=== PATIENT | male | born 1955 | race Caucasian/White ===

== ENCOUNTER 2022-02-27 20:59 | Inpatient (IN) | payer MEDICARE ==
[2022-02-27 21:26] VITALS: BMI 24.3
[2022-02-27] MEDS ORDERED: Ondansetron ODT 4 MG TAB PO PRN (22:11)
[2022-02-27] MEDS ORDERED: Acetaminophen 325 MG TAB PO PRN (22:11)
[2022-02-27] MEDS ORDERED: Ondansetron PF 4 MG/2 ML Vial IVP PRN (22:11)
[2022-02-27] MEDS ORDERED: Acetaminophen 650 MG Suppository PR PRN (22:11)
[2022-02-27] MEDS ORDERED: traZODone HCl 50 MG TAB PO SCH (22:45)
[2022-02-27] MEDS: Sodium Chloride 0.9% 1,000 ML IV SCH (23:08)
[2022-02-28 05:19] LABS: Anion Gap 10 mmol/L (10-20); BUN (Urea Nitrogen) 30 mg/dL (8.4-25.7); Calc. Creatinine Clearance 38 mL/min (70-130); Calcium 9.1 mg/dL (7.8-10.44); Carbon Dioxide 30 mmol/L (23-31); Chloride 100 mmol/L (98-107); Glucose 112 mg/dL (80-115); Potassium 3.6 mmol/L (3.5-5.1); Sodium 136 mmol/L (136-145)
[2022-02-28 05:28] LABS: #Basophils 0.1 thou/uL (0.0-0.2); #Eosinphils 0.4 thou/uL (0.0-0.7); #Lymphocytes 1.6 thou/uL (1.20-3.40); #Monocytes 1.2 thou/uL (0.11-0.59); %Basophils 0.5 % (0.0-1.0); %Lymphocytes 17.5 % (21.0-51.0); %Monocytes 12.6 % (0.0-10.0); %Neutrophils 65.4 % (42.0-75.0); Hemoglobin 12.1 g/dL (14.0-18.0); MDiff Complete? YES; Macrocytosis SLIGHT = 6-15 cells (100X) (0-5/hpf); Mean Corpuscular HGB CONC 33.6 g/dL (32.0-36.0); Mean Corpuscular Hemoglobin 35.4 pg (27.0-31.0); Mean Platelet Volume 7.7 fL (7.4-10.4); Platelet Count 269 thou/uL (130-400); RBC Distribution Width 12.1 % (11.5-14.5); Red Blood Cell (RBC) Count 3.42 mill/uL (4.70-6.10); White Blood Cell (WBC) Count 9.2 thou/uL (4.8-10.8)
[2022-02-28] MEDS: Enoxaparin Sodium 30 MG/0.3 ML SYRINGE SC SCH (08:58)
[2022-02-28] MEDS: Sodium Chloride 0.9% 1,000 ML IV SCH ×2 (09:25→20:34)
[2022-02-28 12:22] LABS: SARS-CoV-2 PCR by NAA Not Detected (NotDetected)
[2022-02-28] MEDS ORDERED: Melatonin 3 MG TAB PO PRN (19:44)
[2022-02-28] MEDS ORDERED: hydrOXYzine 25 MG TAB PO PRN (19:49)
[2022-02-28] MEDS ORDERED: Gabapentin 100 MG CAP PO SCH (21:00)
[2022-03-01 04:41] LABS: Anion Gap 12 mmol/L (10-20); BUN (Urea Nitrogen) 13 mg/dL (8.4-25.7); Calc. Creatinine Clearance 86 mL/min (70-130); Calcium 9.3 mg/dL (7.8-10.44); Carbon Dioxide 26 mmol/L (23-31); Chloride 103 mmol/L (98-107); Glucose 96 mg/dL (80-115); Potassium 3.9 mmol/L (3.5-5.1); Sodium 137 mmol/L (136-145)
[2022-03-01] MEDS: Sodium Chloride 0.9% 1,000 ML IV SCH ×2 (05:26→14:54)
[2022-03-01] MEDS: Enoxaparin Sodium 30 MG/0.3 ML SYRINGE SC SCH (10:52)
[2022-03-01 16:31] VITALS: TEMP 97.3
[2022-03-01 19:28] VITALS: BP 139/78
[2022-03-02] MEDS ORDERED: Enoxaparin Sodium 40 MG/0.4 ML SYRINGE SC SCH (09:00)
== END 2022-03-01 18:55 | disposition home or self-care (01) | DRG 312 ==
LOC: INTOOBSV 20:59 → 2NO 20:59 → OBSVTOIN 02-28 14:09
PROVIDERS: ADMIT Family Medicine; ATTEND Internal Medicine
DX: I95.1 Orthostatic hypotension (principal); N17.9 Acute kidney failure, unspecified; G89.29 Other chronic pain; M54.9 Dorsalgia, unspecified; G62.9 Polyneuropathy, unspecified; I10 Essential (primary) hypertension; E86.0 Dehydration; Z20.822 Contact with and (suspected) exposure to COVID-19; Z87.891 Personal history of nicotine dependence; Z98.890 Other specified postprocedural states
CPT/HCPCS: 36415; 80048; 85025; 93005; 93010; 93306; J1650; J7050; U0003; U0005

== ENCOUNTER 2022-11-20 11:26 | Outpatient (CLI) | payer MEDICARE ==
[2022-11-20 12:16] LABS: #Basophils 0.1 10x3/uL (0.0-0.2); #Eosinphils 0.2 10x3/uL (0.0-0.5); #Monocytes 1.2 10x3/uL (0.0-1.1); #Neutrophils 5.2 10x3/uL (1.5-8.4); %Basophils 0.9 % (0.0-2.0); %Eosinophils 2.7 % (0.0-6.0); %Lymphocytes 21.2 % (18.0-47.0); %Monocytes 13.6 % (0.0-10.0); %Neutrophils 61.4 % (40.0-75.0); Hemoglobin 12.1 g/dL (13.5-17.5); Mean Corpuscular HGB CONC 34.2 g/dL (32.0-36.0); Mean Corpuscular Hemoglobin 36.7 pg (27.0-33.0); Mean Corpuscular Volume 107.3 fl (81.2-95.1); Mean Platelet Volume 9.6 fl (7.4-10.4); Platelet Count 331 10x3/uL (150-450); RBC Distribution Width 13.5 % (11.5-14.5); White Blood Cell (WBC) Count 8.5 10x3/uL (3.5-10.5)
[2022-11-20 12:22] LABS: INR-International Normal Ratio 0.9; Prothrombin Time 10.3 sec (9.5-12.1)
[2022-11-20 12:24] LABS: Anion Gap 16 mmol/L (10-20); BUN (Urea Nitrogen) 14 mg/dL (8.4-25.7); Calc. Creatinine Clearance 0 mL/min (70-130); Calcium 9.8 mg/dL (7.8-10.44); Carbon Dioxide 25 mmol/L (23-31); Chloride 105 mmol/L (98-107); Estimated GFR 96; Glucose 88 mg/dL (80-115); Potassium 4.1 mmol/L (3.5-5.1); Sodium 142 mmol/L (136-145)
== END 2022-11-20 11:27 | disposition home or self-care (01) ==
LOC: LABBT 11:26
PROVIDERS: ATTEND Orthopaedic Surgery
DX: Z01.818 Encounter for other preprocedural examination (principal); T84.011A Broken internal left hip prosthesis, initial encounter
CPT/HCPCS: 80048; 85025; 85610; 87081; 93005; 93010

== ENCOUNTER 2022-11-21 16:04 | Emergency (ER) | payer MEDICARE | END 2022-11-21 17:45 | disposition short-term general hospital (02) | LOC: ERS 16:04 | DX: M25.552 Pain in left hip (principal); E78.5 Hyperlipidemia, unspecified; I10 Essential (primary) hypertension; Z79.899 Other long term (current) drug therapy; Z87.891 Personal history of nicotine dependence ==

== ENCOUNTER 2022-11-21 18:48 | Inpatient (IN) | payer MEDICARE ==
[2022-11-21] MEDS ORDERED: Fentanyl 100 MCG/2 ML VIAL ONE (19:21)
[2022-11-21] MEDS ORDERED: Ondansetron PF 4 MG/2 ML Vial ONE (19:22)
[2022-11-21] MEDS ORDERED: Ketorolac Tromethamine 30 MG/ML VIAL ONE (20:08)
[2022-11-21] MEDS ORDERED: Morphine 4 MG/ML VIAL ONE (20:08)
[2022-11-21 20:10] LABS: #Basophils 0.1 thou/uL (0.0-0.2); #Eosinphils 0.3 thou/uL (0.0-0.7); #Lymphocytes 2.3 thou/uL (1.20-3.40); %Basophils 0.9 % (0.0-1.0); %Eosinophils 3.8 % (0.0-10.0); %Lymphocytes 29.9 % (21.0-51.0); %Monocytes 13.5 % (0.0-10.0); %Neutrophils 51.9 % (42.0-75.0); Hemoglobin 11.8 g/dL (14.0-18.0); Mean Corpuscular HGB CONC 34.1 g/dL (32.0-36.0); Mean Corpuscular Hemoglobin 36.5 pg (27.0-31.0); Mean Platelet Volume 7.1 fL (7.4-10.4); Platelet Count 304 10x3/uL (130-400); RBC Distribution Width 12.4 % (11.5-14.5); Red Blood Cell (RBC) Count 3.24 mill/uL (4.70-6.10); White Blood Cell (WBC) Count 7.6 10x3/uL (4.8-10.8)
[2022-11-21 20:22] LABS: INR-International Normal Ratio 0.9; PTT 25.4 sec (22.9-36.1); Prothrombin Time 12.9 sec (12.0-14.7)
[2022-11-21] MEDS ORDERED: LORazepam 2 MG/ML SYR.(CARPUJECT) ONE (20:22)
[2022-11-21 20:30] LABS: ALT (SGPT) 28 U/L (8-55); AST (SGOT) 36 U/L (5-34); Albumin 4.1 g/dL (3.4-4.8); Alkaline Phosphatase 138 U/L (40-110); Anion Gap 13 mmol/L (10-20); BUN (Urea Nitrogen) 17 mg/dL (8.4-25.7); Bilirubin, Total 0.4 mg/dL (0.2-1.2); Calc. Creatinine Clearance 0 mL/min (70-130); Calcium 9.4 mg/dL (7.8-10.44); Carbon Dioxide 28 mmol/L (23-31); Chloride 103 mmol/L (98-107); Estimated GFR 88; Globulin 2.9 g/dL (2.4-3.5); Glucose 88 mg/dL (80-115); Potassium 3.8 mmol/L (3.5-5.1); Sodium 140 mmol/L (136-145)
[2022-11-21] MEDS ORDERED: Ondansetron ODT 4 MG TAB SL PRN (22:00)
[2022-11-21] MEDS ORDERED: Ondansetron PF 4 MG/2 ML Vial IVP PRN (22:00)
[2022-11-21] MEDS ORDERED: Morphine 2 MG/ML VIAL SLOW IVP PRN (22:01)
[2022-11-21] MEDS: D5 1/2 NS w/20 mEq KCL 1,000 ML IV SCH (22:54)
[2022-11-22 00:55] LABS: SARS-CoV-2 NAA Rapid Test Not Detected (NotDetected)
[2022-11-22 02:00] VITALS: BMI 22.8
[2022-11-22] MEDS ORDERED: fentaNYL PF 100 MCG/2 ML SYRINGE ONE ×2 (06:32→08:11)
[2022-11-22] MEDS ORDERED: Vancomycin 1 GM/200 ML (FROZEN) BAG ONE (06:46)
[2022-11-22] MEDS ORDERED: Sodium Chloride 0.9% 100 ML ONE ×2 (06:46→07:17)
[2022-11-22] MEDS ORDERED: Tranexamic Acid 1,000 MG/10 ML VIAL ONE (06:46)
[2022-11-22] MEDS ORDERED: Promethazine HCl 25 MG/ML VIAL IM PRN ×2 (07:00→10:04)
[2022-11-22] MEDS ORDERED: Ondansetron HCl/PF 4 MG/2 ML Vial IVP PRN (07:00)
[2022-11-22] MEDS ORDERED: HYDROmorphone 2 MG/ML VIAL SLOW IVP PRN (07:00)
[2022-11-22] MEDS ORDERED: Bupivacaine PF 0.5% 30 ML VIAL ONE (07:04)
[2022-11-22] MEDS ORDERED: Tobramycin Sulfate 1.2 GM VIAL ONE (07:04)
[2022-11-22] MEDS ORDERED: Vancomycin 1 GM VIAL ONE (07:04)
[2022-11-22] MEDS ORDERED: CEFAZOLIN 2 GM VIAL ONE (07:17)
[2022-11-22] MEDS ORDERED: Dexamethasone 20 MG/5 ML VIAL ONE (07:17)
[2022-11-22] MEDS ORDERED: PHENYLEPHRINE-NS 100 MCG/ML 10 ML SYRINGE ONE (07:17)
[2022-11-22] MEDS ORDERED: PROPOFOL 200 MG/20 ML VIAL ONE (07:17)
[2022-11-22] MEDS ORDERED: Rocuronium Bromide 10 MG/ML (10ML VIAL) ONE (07:17)
[2022-11-22] MEDS ORDERED: Lidocaine 1% PF 5 ML VIAL ONE (07:17)
[2022-11-22] MEDS ORDERED: Ondansetron PF 4 MG/2 ML Vial ONE (07:17)
[2022-11-22] MEDS ORDERED: SUGAMMADEX SODIUM 200 MG/2 ML VIAL ONE (09:58)
[2022-11-22] MEDS ORDERED: diphenhydrAMINE 25 MG CAP PO PRN (10:04)
[2022-11-22] MEDS ORDERED: Acetaminophen 325 MG TAB PO PRN (10:04)
[2022-11-22] MEDS ORDERED: Fentanyl 100 MCG/2 ML VIAL SLOW IVP PRN (10:04)
[2022-11-22] MEDS ORDERED: Fentanyl 100 MCG/2 ML VIAL ONE ×2 (10:19→10:49)
[2022-11-22] MEDS: Sodium Chloride 0.9% 1,000 ML IV SCH ×2 (11:39→21:15)
[2022-11-22] MEDS: D5 1/2 NS w/20 mEq KCL 1,000 ML IV SCH (11:39)
[2022-11-22] MEDS: HYDROcodone/Acetaminophen 10/325 mg Tablet PO PRN ×2 (12:59→18:05)
[2022-11-22] MEDS: Ketorolac Tromethamine 30 MG/ML VIAL IVP SCH ×2 (13:00→21:17)
[2022-11-22] MEDS: CEFAZOLIN 2 GM in Sodium Chloride 0.9% 100 ML IVPB SCH ×2 (14:58→22:30)
[2022-11-22] MEDS ORDERED: Vancomycin 1.5 GRAM/300 ML BAG 1.5 GM in Premix Bag 1 BAG IVPB SCH (18:15)
[2022-11-22] MEDS ORDERED: Vancomycin HCl 1.5 GM in Sodium Chloride 0.9% 250 ML 300 ML IVPB SCH (19:00)
[2022-11-22] MEDS: Zolpidem Tartrate 5 MG TAB PO PRN (21:16)
[2022-11-22] MEDS: Senokot S 8.6-50 MG TAB PO SCH (21:16)
[2022-11-22] MEDS: Aspirin 81 mg Enteric Coated Tablet PO SCH (21:17)
[2022-11-22] MEDS: Ferrous Gluconate 324 MG TAB PO SCH (21:17)
[2022-11-22] MEDS: Gabapentin 100 MG CAP PO SCH (21:17)
[2022-11-23] MEDS: Ketorolac Tromethamine 30 MG/ML VIAL IVP SCH ×3 (05:32→21:07)
[2022-11-23] MEDS: HYDROcodone/Acetaminophen 10/325 mg Tablet PO PRN ×4 (05:32→18:13)
[2022-11-23] MEDS: Sodium Chloride 0.9% 1,000 ML IV SCH ×2 (06:09→14:21)
[2022-11-23 06:18] LABS: Hemoglobin 8.5 g/dL (14.0-18.0); Mean Corpuscular HGB CONC 33.6 g/dL (32.0-36.0); Mean Corpuscular Hemoglobin 37.3 pg (27.0-31.0); Mean Platelet Volume 7.7 fL (7.4-10.4); Platelet Count 220 10x3/uL (130-400); RBC Distribution Width 12.3 % (11.5-14.5); Red Blood Cell (RBC) Count 2.29 mill/uL (4.70-6.10); White Blood Cell (WBC) Count 10.6 10x3/uL (4.8-10.8)
[2022-11-23] MEDS: Aspirin 81 mg Enteric Coated Tablet PO SCH ×2 (09:12→21:06)
[2022-11-23] MEDS: Senokot S 8.6-50 MG TAB PO SCH ×2 (09:12→21:07)
[2022-11-23] MEDS: Ferrous Gluconate 324 MG TAB PO SCH ×2 (09:12→21:06)
[2022-11-23] MEDS: Multivitamin W/ Minerals 1 TAB PO SCH (09:12)
[2022-11-23] MEDS: Lisinopril/Hydrochlorothiazide 20/25 mg Tablet PO SCH (09:12)
[2022-11-23] MEDS: Gabapentin 100 MG CAP PO SCH (21:06)
[2022-11-23] MEDS: Atorvastatin Calcium 20 MG TAB PO SCH (21:06)
[2022-11-23] MEDS: Ondansetron PF 4 MG/2 ML Vial IVP PRN (21:10)
[2022-11-24] MEDS: Sodium Chloride 0.9% 1,000 ML IV SCH ×3 (02:31→20:23)
[2022-11-24] MEDS: Ketorolac Tromethamine 30 MG/ML VIAL IVP SCH ×2 (05:29→14:59)
[2022-11-24 06:38] LABS: Hemoglobin 8.7 g/dL (14.0-18.0); Mean Corpuscular HGB CONC 33.9 g/dL (32.0-36.0); Mean Corpuscular Hemoglobin 37.5 pg (27.0-31.0); Mean Platelet Volume 7.6 fL (7.4-10.4); Platelet Count 226 10x3/uL (130-400); RBC Distribution Width 12.3 % (11.5-14.5); Red Blood Cell (RBC) Count 2.31 mill/uL (4.70-6.10); White Blood Cell (WBC) Count 9.4 10x3/uL (4.8-10.8)
[2022-11-24] MEDS: Multivitamin W/ Minerals 1 TAB PO SCH (08:46)
[2022-11-24] MEDS: Aspirin 81 mg Enteric Coated Tablet PO SCH ×2 (08:46→20:23)
[2022-11-24] MEDS: Lisinopril/Hydrochlorothiazide 20/25 mg Tablet PO SCH (08:46)
[2022-11-24] MEDS: Senokot S 8.6-50 MG TAB PO SCH ×2 (08:46→20:23)
[2022-11-24] MEDS: Ferrous Gluconate 324 MG TAB PO SCH ×2 (08:46→20:23)
[2022-11-24] MEDS: Ondansetron PF 4 MG/2 ML Vial IVP PRN ×2 (08:49→18:25)
[2022-11-24] MEDS: HYDROcodone/Acetaminophen 10/325 mg Tablet PO PRN ×2 (08:49→18:25)
[2022-11-24] MEDS: Zolpidem Tartrate 5 MG TAB PO PRN (20:23)
[2022-11-24] MEDS: Atorvastatin Calcium 20 MG TAB PO SCH (20:23)
[2022-11-24] MEDS: Gabapentin 100 MG CAP PO SCH (20:23)
[2022-11-25] MEDS: HYDROcodone/Acetaminophen 10/325 mg Tablet PO PRN ×3 (04:36→16:59)
[2022-11-25 05:50] LABS: Hemoglobin 8.6 g/dL (14.0-18.0); Mean Corpuscular HGB CONC 32.9 g/dL (32.0-36.0); Mean Corpuscular Hemoglobin 36.4 pg (27.0-31.0); Mean Platelet Volume 6.9 fL (7.4-10.4); Platelet Count 269 10x3/uL (130-400); RBC Distribution Width 12.5 % (11.5-14.5); Red Blood Cell (RBC) Count 2.36 mill/uL (4.70-6.10); White Blood Cell (WBC) Count 9.9 10x3/uL (4.8-10.8)
[2022-11-25] MEDS: Sodium Chloride 0.9% 1,000 ML IV SCH ×2 (08:00→17:49)
[2022-11-25] MEDS: Ferrous Gluconate 324 MG TAB PO SCH ×2 (09:36→20:54)
[2022-11-25] MEDS: Lisinopril/Hydrochlorothiazide 20/25 mg Tablet PO SCH (09:37)
[2022-11-25] MEDS: Multivitamin W/ Minerals 1 TAB PO SCH (09:37)
[2022-11-25] MEDS: Aspirin 81 mg Enteric Coated Tablet PO SCH ×2 (09:37→20:55)
[2022-11-25] MEDS: Senokot S 8.6-50 MG TAB PO SCH ×2 (09:38→20:55)
[2022-11-25] MEDS: Ondansetron PF 4 MG/2 ML Vial IVP PRN (17:00)
[2022-11-25] MEDS: Gabapentin 100 MG CAP PO SCH (20:54)
[2022-11-25] MEDS: Zolpidem Tartrate 5 MG TAB PO PRN (20:56)
[2022-11-25] MEDS: Atorvastatin Calcium 20 MG TAB PO SCH (20:56)
[2022-11-26] MEDS: Sodium Chloride 0.9% 1,000 ML IV SCH ×3 (04:12→22:49)
[2022-11-26 06:14] LABS: Mean Corpuscular HGB CONC 33.4 g/dL (32.0-36.0); Mean Corpuscular Hemoglobin 36.6 pg (27.0-31.0); Mean Platelet Volume 6.9 fL (7.4-10.4); Platelet Count 312 10x3/uL (130-400); RBC Distribution Width 12.6 % (11.5-14.5); Red Blood Cell (RBC) Count 2.47 mill/uL (4.70-6.10)
[2022-11-26] MEDS: HYDROcodone/Acetaminophen 10/325 mg Tablet PO PRN ×3 (08:46→21:15)
[2022-11-26] MEDS: Multivitamin W/ Minerals 1 TAB PO SCH (08:46)
[2022-11-26] MEDS: Lisinopril/Hydrochlorothiazide 20/25 mg Tablet PO SCH (08:46)
[2022-11-26] MEDS: Senokot S 8.6-50 MG TAB PO SCH ×2 (08:47→21:16)
[2022-11-26] MEDS: Ferrous Gluconate 324 MG TAB PO SCH ×2 (08:47→21:15)
[2022-11-26] MEDS: Aspirin 81 mg Enteric Coated Tablet PO SCH ×2 (08:47→21:16)
[2022-11-26 21:12] VITALS: BP 114/79; TEMP 98.2
[2022-11-26] MEDS: Atorvastatin Calcium 20 MG TAB PO SCH (21:16)
[2022-11-26] MEDS: Gabapentin 100 MG CAP PO SCH (21:16)
== END 2022-11-26 22:10 | DRG 468 ==
LOC: ERS 18:48 → SURG A 19:52
PROVIDERS: ADMIT Orthopaedic Surgery; ATTEND Orthopaedic Surgery
PROC: 0SRB0JA Replacement of Left Hip Joint with Synthetic Substitute, Uncemented, Open Approach (ICD-10-PCS; principal; 2022-11-22)
PROC: 0SPB0JZ Removal of Synthetic Substitute from Left Hip Joint, Open Approach (ICD-10-PCS; 2022-11-22)
DX: T84.021A Dislocation of internal left hip prosthesis, initial encounter (principal); I10 Essential (primary) hypertension; E78.5 Hyperlipidemia, unspecified; Z20.822 Contact with and (suspected) exposure to COVID-19; Z96.642 Presence of left artificial hip joint; Z87.891 Personal history of nicotine dependence; Z79.899 Other long term (current) drug therapy; Z01.818 Encounter for other preprocedural examination; T84.011A Broken internal left hip prosthesis, initial encounter
CPT/HCPCS: 36415; 71045; 80048; 80053; 85025; 85027; 85610; 85730; 87070; 87081; 87205; 88305; 88331; 93005; 93010; 96374; 96375; C1713; C1776; J1100; J1885; J2060; J2270; J2405; J2704; J3010; J3260; J3370; J3370-JW; J3480; J3490; J7050; S0020; U0002

== ENCOUNTER 2023-03-04 09:30 | Outpatient (CLI) | payer MEDICARE | END 2023-03-04 09:31 | disposition home or self-care (01) | LOC: PET 09:30 | PROVIDERS: ATTEND Student in an Organized Health Care Education/Training Program | DX: R91.8 Other nonspecific abnormal finding of lung field (principal) | CPT/HCPCS: 78815; A9552 ==